=== PATIENT | female | born 1960 | race Caucasian/White ===

== ENCOUNTER 2019-04-29 10:37 | Emergency (ER) | payer BC ==
[~2019-04-29] VITALS: Ht 157.5 cm; Wt 97.5 kg
--- NOTE | 2019-04-29 10:48 | NUR ---
Patient to ER bed 8 to gown for evaluation. Side rails up. Report given to KAYLYNN ALLAN .
[2019-04-29 10:49] VITALS: BP_SYST 192
--- NOTE | 2019-04-29 10:50 | NUR ---
PT CAME TO ER FOR NAUSEA AND WEAKNESS WHILE AT SCHOOL. CURRENTLY IN [facility] AWAITING MD. ON MONITOR AT THIS TIME.
[2019-04-29] MEDS ORDERED: hydrALAZINE HCL 20 MG/ML VIAL IVP ONE (11:00)
[2019-04-29] MEDS ORDERED: ENALAPRILAT DIHYDRATE 1.25 MG/ML VIAL IVP ONE (11:00)
--- NOTE | 2019-04-29 11:05 | NUR ---
ER at bedside examining patient.
--- NOTE | 2019-04-29 11:15 | NUR ---
PT RESTING IN GURNEY AT BEDSIDE. NO COMPLAINTS AT THIS TIME.
[2019-04-29 11:24] LABS: BASOPHILS # (AUTO) 0.1 K/uL (0.0-0.2); BASOPHILS % (AUTO) 0.5 % (0.0-2.0); EOSINOPHILS % (AUTO) 0.1 % (0.0-4.0); HEMATOCRIT 44.3 % (36-48); HEMOGLOBIN 14.7 g/dL (12.0-16.0); LYMPHOCYTES # (AUTO) 1.7 K/uL (1.0-5.5); LYMPHOCYTES % (AUTO) 13.9 % (20.5-51.5); MEAN CORPUSCULAR HEMOGLOBIN 29 pg (27-31); MEAN CORPUSCULAR HGB CONC 33 % (32-36); MEAN CORPUSCULAR VOLUME 86 fL (79.0-98.0); MONOCYTES # (AUTO) 0.3 K/uL (0.0-1.0); MONOCYTES % (AUTO) 2.4 % (1.7-9.3); NEUTROPHILS % (AUTO) 83.1 % (40.0-70.0); PLATELET COUNT (AUTO) 353 K/uL (130-430); RED BLOOD CELL COUNT(AUTO) 5.12 MIL/uL (4.2-6.2); RED CELL DISTRIBUTION WIDTH 13.4 % (9.0-15.0); WHITE BLOOD COUNT (AUTO) 12.1 K/uL (4.8-10.8)
[2019-04-29 11:37] LABS: CALCIUM 8.5 mg/dL (8.4-11.0); CREATININE 0.87 mg/dL (0.55-1.30); POTASSIUM 3.3 mmol/L (3.5-5.1)
[2019-04-29 11:43] LABS: ALBUMIN 3.6 g/dL (3.4-4.8); TOTAL BILIRUBIN 1.1 mg/dL (0.0-1.0)
[2019-04-29] MEDS ORDERED: hydrALAZINE HCL 20 MG/ML VIAL ONE (12:00)
[2019-04-29] MEDS ORDERED: ENALAPRILAT DIHYDRATE 1.25 MG/ML VIAL ONE (12:00)
--- NOTE | 2019-04-29 12:30 | NUR ---
PT BEGAN FEELING NAUSEOUS AND DIZZY. BLOOD PRESSURE 66/24, IV FLUIDS ADMINISTERED. bLOOD PRESURE RETAKEN 91/22. PT STILL EXPERIENCES L SIDED NUMBNESS, EXPRESSIVE APHASIA, 2ND IV SITE TO BE OBTAINED.
[2019-04-29] MEDS ORDERED: NACL 0.9% 1,000 ML IV ONE (12:45)
[2019-04-29 13:15] VITALS: BP_SYST 100
--- NOTE | 2019-04-29 13:15 | NUR ---
Patient to be transferred to [place]. Is being transferred due to higher level of care. Receiving facility has accepting physician and available space. ER physician has signed transfer form. Patient or responsible libertarian has agreed to transfer and signed form. Patient belongings inventoried and will be sent with patient. Copy of nursing notes, lab reports, EKG, Physicians Orders and X-rays to be sent with patient. Report called to TYLER at receiving facility. Receiving physician is TWAN REGAN. [facility] ambulance service has been called for transfer. PT IS LEAVING.
== END 2019-04-29 13:15 | disposition short-term general hospital (02) ==
LOC: SED 10:37
DX: I62.9 Nontraumatic intracranial hemorrhage, unspecified (principal); I10 Essential (primary) hypertension; Z85.850 Personal history of malignant neoplasm of thyroid; Z90.710 Acquired absence of both cervix and uterus; Z88.0 Allergy status to penicillin; Z88.6 Allergy status to analgesic agent; Z88.5 Allergy status to narcotic agent
CPT/HCPCS: 36415; 70450; 80053; 83880; 84484; 85025; 85379; 96374; 96375; 99291; J0360; J7030

== ENCOUNTER 2019-10-18 14:06 | Emergency (ER) | payer BC ==
[~2019-10-18] VITALS: Ht 157.5 cm; Wt 77.1 kg
[2019-10-18 14:06] VITALS: BP_SYST 151
[2019-10-18] MEDS ORDERED: MORPHINE 2 MG/ML INJ. SYRINGE IVP ONE (15:00)
[2019-10-18] MEDS ORDERED: KETAMINE 30 MG/3 ML SYRINGE 15 MG in NS 100 ML IV ONE (15:00)
[2019-10-18] MEDS ORDERED: CYCLOBENZAPRINE HCL 10 MG TABLET (FLEXERIL) PO ONE (17:15)
[2019-10-18 17:30] VITALS: BP_SYST 136
[2019-10-18] MEDS ORDERED: MORPHINE 4 MG/ML INJ. SYRINGE IVP ONE (17:30)
== END 2019-10-18 17:30 | disposition home or self-care (01) ==
LOC: SED 14:06
DX: S32.019A Unspecified fracture of first lumbar vertebra, initial encounter for closed fracture (principal); S32.029A Unspecified fracture of second lumbar vertebra, initial encounter for closed fracture; S09.90XA Unspecified injury of head, initial encounter; Z88.0 Allergy status to penicillin; Z88.5 Allergy status to narcotic agent; Z88.8 Allergy status to other drugs, medicaments and biological substances; Z86.73 Personal history of transient ischemic attack (TIA), and cerebral infarction without residual deficits; W01.198A Fall on same level from slipping, tripping and stumbling with subsequent striking against other object, initial encounter; Y93.89 Activity, other specified; Y92.89 Other specified places as the place of occurrence of the external cause; Y99.8 Other external cause status
CPT/HCPCS: 70450; 72131; 96374; 96376; 99285; J2270 ×2